=== PATIENT | female | born 1955 | race Caucasian/White ===

== ENCOUNTER → 2017-10-03 | Outpatient (CLI) | payer OTHER ==
[~2017-10-03] VITALS: Ht 165.1 cm; Wt 83.9 kg
[~2017-10-03] MED LIST: BENLYSTA400 MG IV; CEFDINIR300 MG PO; CIPRO500 MG PO; CREON 241 CAPSULE PO; CREON DR 12,001 EAC1 PO; DIAZEPAM10 MG PO; DURAGESIC100 MCG TD; ESTROGEL50 GM TP; FOLIC ACID0.4 MG PO; FORTESTA60 GM TP; LEVOTHYROXINE175 MCG PO; LIDODERM 5% P1 PATCH TD; LIDODERM 5% P1 PATCH TP; MORPHINE SULFAT15 M1 PO; NITROFURANTOIN100 MG PO; ONDANSETRON HCL4 MG PO; PEDIADERM TA 0115 GM TP; PLAQUENIL200 MG PO; PREDNISOLONE AC15 ML BOTH EYES; PROAIR HFA8.5 GM IH; PROTONIX40 MG PO; PULMICORT FLEX90 MCG IH; RITALIN10 MG PO; RITALIN20 MG PO; SYNTHROID175 MCG PO; SYNTHROID25 MCG PO; VAGIFEM10 MCG VG; VALTREX1000 MG PO; VITAMIN B-625 MG; VITAMIN B12 100MCG; VITAMIN D-32000 UNIT PO; VITAMIN D5000 INTUN PO; ZONEGRAN100 MG PO; [UNRECOGNIZED DRUG - OTHER] TP
[2017-10-03 08:41] VITALS: BP 142/87
[2017-10-03 09:06] LABS: CHLORIDE 104 MEQ/L (99-109); POTASSIUM 4.9 MEQ/L (3.7-5.4); SODIUM 140 MEQ/L (136-147)
[2017-10-03 09:12] LABS: CREATININE 0.8 MG/DL (0.6-1.3); GFR ESTIMATE (CALCULATED) > 59 mL/min/; GLUCOSE 157 mg/dL (70-99); UREA NITROGEN (BUN) 16 mg/dL (9-23)
== END | disposition home or self-care (01) ==
LOC: OPR 07:54
PROVIDERS: Family Medicine
DX: M47.892 Other spondylosis, cervical region (principal); M46.86 Other specified inflammatory spondylopathies, lumbar region; G35 Multiple sclerosis
CPT/HCPCS: 72156; 72157; 72158; 80048; 82948; 93005; J0330; J1170; J3010